=== PATIENT | female | born 1965 | race Caucasian/White ===

== ENCOUNTER 2022-12-04 13:47 | Outpatient (CLI) | payer BC | END 2022-12-04 13:48 | disposition home or self-care (01) | LOC: MADRAD 13:47 | PROVIDERS: ATTEND Nurse Practitioner Family | DX: R06.02 Shortness of breath (principal); J01.90 Acute sinusitis, unspecified; R07.89 Other chest pain; E66.3 Overweight; G43.909 Migraine, unspecified, not intractable, without status migrainosus; Z68.27 Body mass index [BMI] 27.0-27.9, adult; W57.XXXA Bitten or stung by nonvenomous insect and other nonvenomous arthropods, initial encounter | CPT/HCPCS: 71046 ==

== ENCOUNTER 2023-05-12 11:03 | Emergency (ER) | payer BC ==
[2023-05-12 12:00] LABS: Bilirubin Negative (Negative); Blood, Urine Negative (Negative); Clarity Clear (Clear); Glucose, Urine (Dipstick) Negative (Negative); Ketone, Urine Trace mg/dL (Negative); Leukocyte Negative (Negative); Nitrite Negative (Negative); Protein, Urine (Dipstick) Trace mg/dL (Neg-Trace); Specific Gravity, Urine 1.025 (1.005-1.030); Urobilinogen 0.2 mg/dL (Less than 2); pH, Urine 6.5 (5.0-9.0)
[2023-05-12 12:02] LABS: RBC/HPF 0-3 HPF (0-3)
[2023-05-12 12:03] LABS: Bacteria/HPF Rare-Few HPF (None Seen); CAUTI Indications for Culture Pelvic or flank pain; Squamous Epithelial 0-3 HPF (0-3); WBC/HPF 0-3 HPF (0-3)
[2023-05-12 12:04] LABS: Urine Culture Reflex No No
[2023-05-12] MEDS ORDERED: Mag-Al Plus 1200 MG/1200 MG/120 MG/30 ML UDCUP ONE (12:23)
[2023-05-12] MEDS ORDERED: Ketorolac Tromethamine 30 MG/ML VIAL ONE (12:24)
[2023-05-12 12:41] LABS: #Basophils 0.2 thou/uL (0.0-0.2); #Lymphocytes 1.4 thou/uL (1.20-3.40); #Monocytes 0.4 thou/uL (0.11-0.59); #Neutrophils 3.3 thou/uL (1.40-6.50); %Basophils 2.5 % (0.0-1.0); %Eosinophils 16.4 % (0.0-10.0); %Lymphocytes 22.2 % (21.0-51.0); Hematocrit 44.4 % (36.0-47.0); Hemoglobin 14.8 g/dL (12.0-16.0); Mean Corpuscular HGB CONC 33.2 g/dL (32.0-36.0); Mean Corpuscular Hemoglobin 30.6 pg (27.0-31.0); Mean Corpuscular Volume 92.1 fl (78.0-98.0); Mean Platelet Volume 7.9 fL (7.4-10.4); Platelet Count 251 10x3/uL (130-400); RBC Distribution Width 11.9 % (11.5-14.5); Red Blood Cell (RBC) Count 4.82 mill/uL (4.20-5.40); White Blood Cell (WBC) Count 6.2 10x3/uL (4.8-10.8)
[2023-05-12 13:00] LABS: ALT (SGPT) 11 U/L (8-55); AST (SGOT) 18 U/L (5-34); Alkaline Phosphatase 95 U/L (40-110); Anion Gap 16 mmol/L (10-20); BUN (Urea Nitrogen) 11 mg/dL (9.8-20.1); Bilirubin, Total 0.3 mg/dL (0.2-1.2); Calc. Creatinine Clearance 0 mL/min (70-130); Calcium 9.4 mg/dL (7.8-10.44); Carbon Dioxide 24 mmol/L (22-29); Chloride 106 mmol/L (98-107); Estimated GFR 88; Globulin 2.4 g/dL (2.4-3.5); Glucose 94 mg/dL (70-105); Lipase 30 U/L (8-78); Potassium 3.6 mmol/L (3.5-5.1); Protein, Total 6.4 g/dL (6.0-8.3); Sodium 142 mmol/L (136-145)
[2023-05-12 13:17] LABS: CKMB 1.8 ng/mL (0-6.6)
[2023-05-12] MEDS ORDERED: Aspirin Chewable 81 MG TAB ONE ×2 (13:49→13:50)
== END 2023-05-12 17:30 | disposition short-term general hospital (02) ==
LOC: MADERS 11:03
DX: I21.4 Non-ST elevation (NSTEMI) myocardial infarction (principal); K21.9 Gastro-esophageal reflux disease without esophagitis; Z79.899 Other long term (current) drug therapy; Z86.16 Personal history of COVID-19
CPT/HCPCS: 71046; 80053; 81001; 82553; 83690; 84484; 85025; 93005; 96372; 96374; J1650; J1885

== ENCOUNTER 2023-05-15 00:12 | Emergency (ER) | payer BC ==
[2023-05-15] MEDS ORDERED: Aspirin Chewable 81 MG TAB ONE (00:49)
[2023-05-15] MEDS ORDERED: Nitroglycerin 0.4 MG TAB 1 EACH ONE (00:49)
[2023-05-15] MEDS ORDERED: Lactated Ringer's 1,000 ML ONE (01:09)
[2023-05-15] MEDS ORDERED: Metoclopramide HCl 10 MG/2 ML VIAL ONE (01:09)
[2023-05-15] MEDS ORDERED: Mag-Al Plus 1200 MG/1200 MG/120 MG/30 ML UDCUP ONE (01:10)
[2023-05-15 01:16] LABS: #Basophils 0.2 thou/uL (0.0-0.2); #Eosinphils 1.9 thou/uL (0.0-0.7); #Lymphocytes 2.3 thou/uL (1.20-3.40); #Monocytes 0.4 thou/uL (0.11-0.59); #Neutrophils 3.2 thou/uL (1.40-6.50); %Eosinophils 23.6 % (0.0-10.0); %Lymphocytes 29.8 % (21.0-51.0); %Monocytes 4.6 % (0.0-10.0); Hematocrit 45.9 % (36.0-47.0); Hemoglobin 15.3 g/dL (12.0-16.0); Mean Corpuscular HGB CONC 33.5 g/dL (32.0-36.0); Mean Corpuscular Hemoglobin 30.7 pg (27.0-31.0); Mean Corpuscular Volume 91.8 fl (78.0-98.0); Mean Platelet Volume 8.2 fL (7.4-10.4); Platelet Count 294 10x3/uL (130-400); RBC Distribution Width 12.3 % (11.5-14.5); White Blood Cell (WBC) Count 7.9 10x3/uL (4.8-10.8)
[2023-05-15] MEDS ORDERED: Sucralfate 1 GM TAB ONE (01:31)
[2023-05-15 01:48] LABS: Troponin I 0.011 ng/mL (< 0.028)
[2023-05-15 01:56] LABS: ALT (SGPT) 13 U/L (8-55); AST (SGOT) 20 U/L (5-34); Albumin 3.7 g/dL (3.5-5.0); Alkaline Phosphatase 83 U/L (40-110); Anion Gap 16 mmol/L (10-20); BUN (Urea Nitrogen) 17 mg/dL (9.8-20.1); Bilirubin, Total 0.2 mg/dL (0.2-1.2); Calc. Creatinine Clearance 0 mL/min (70-130); Calcium 8.9 mg/dL (7.8-10.44); Carbon Dioxide 22 mmol/L (22-29); Chloride 109 mmol/L (98-107); Estimated GFR 69; Globulin 2.4 g/dL (2.4-3.5); Glucose 85 mg/dL (70-105); Lipase 44 U/L (8-78); Potassium 3.6 mmol/L (3.5-5.1); Protein, Total 6.1 g/dL (6.0-8.3); Sodium 143 mmol/L (136-145)
== END 2023-05-15 02:17 | disposition home or self-care (01) ==
LOC: MADERS 00:12
DX: R07.89 Other chest pain (principal)
CPT/HCPCS: 71046; 80053; 83690; 83880; 84484; 85025; 85379; 93005; 94760; 96374; J2765; J7120